=== PATIENT | female | born 1935 | race Caucasian/White ===

== ENCOUNTER 2016-10-08 06:16 | Day surgery (SDC) | payer MEDICARE, OTHER ==
[2016-10-06 11:37] VITALS: BMI 39.4
[~2016-10-08 06:16] MED LIST: LACTATED RINGERS 1,000 ML IV SCH; LIDOCAINE 1% 20 ML VIAL (10MG/ML) FOR IV START INTRADERMA PRN
[2016-10-08] MEDS ORDERED: LACTATED RINGERS 1,000 ML IV ONE (07:16)
[2016-10-08 07:30] LABS: Glucose,Whole Blood 97 mg/dL (75-99)
[2016-10-08] MEDS ORDERED: PROPOFOL 10 MG/ML 20 ML VIAL IV ONE (07:40)
--- NOTE | 2016-10-08 07:49 | P.GSHP ---
History of Present Illness H&P Date: 10/08/16 Patient is here today for colonoscopy. At the [facility] she was found have a large mass in the perianal location. She has constant leakage and is not sure if it is urine or liquid stool. She herself is unaware of the mass being there. Some bleeding at times. Past Medical History Past Medical History: Diabetes Mellitus, GERD/Reflux, Hyperlipidemia, Hypertension, Renal Disease, Thyroid Disorder, Vascular Disorder Additional Past Medical History / Comment(s): Type 2 diabetic, chronic renal failure, esophageal stricture, uses 4 wheel walker History of Any Multi-Drug Resistant Organisms: None Reported Past Surgical History: Hysterectomy Additional Past Surgical History / Comment(s): rectocele repair Past Anesthesia/Blood Transfusion Reactions: No Reported Reaction Smoking Status: Never smoker Past Alcohol Use History: None Reported Past Drug Use History: None Reported - Past Family History Mother Family Medical History: Unable to Obtain Medications and Allergies Home Medications Medication Instructions Recorded Confirmed Type Lovastatin [Mevacor] 20 mg PO HS 10/09/13 10/06/16 History Allopurinol [Zyloprim] 100 mg PO DAILY 09/22/16 10/06/16 History Doxercalciferol 0.5 mcg PO MO 09/22/16 10/06/16 History Famotidine [Pepcid] 20 mg PO DAILY 09/22/16 10/06/16 History Furosemide [Lasix] 20 mg PO DAILY 09/22/16 10/06/16 History Levothyroxine Sodium [Synthroid] 88 mcg PO DAILY 09/22/16 10/06/16 History Linagliptin [Tradjenta] 5 mg PO DAILY 09/22/16 10/06/16 History Mirabegron [Myrbetriq] 25 mg PO DAILY 09/22/16 10/06/16 History Ubidecarenone [Co Q-10] 200 mg PO DAILY 09/22/16 10/06/16 History Vit D3/Folic Acid/B2/B6/B12 1 each PO HS 09/22/16 10/06/16 History [Folgard Tablet] amLODIPine BESYLATE [Norvasc] 2.5 mg PO DAILY 09/22/16 10/08/16 History Acetaminophen [Tylenol] 2 tab PO Q4H PRN 10/06/16 10/06/16 History Arthricream Rub Cream 10% 1 applic TOPICAL DAILY PRN 10/06/16 10/06/16 History Bisacodyl [Dulcolax] 10 mg RECTAL DAILY PRN 10/06/16 10/06/16 History Calcium Carbonate [Tums] 500 mg PO BID 10/06/16 10/06/16 History Ferrous Sulfate [Feosol] 325 mg PO DAILY 10/06/16 10/06/16 History Hydrocortisone Pr Cream 1 applic RECTAL QID PRN 10/06/16 10/06/16 History [Proctosol-Hc 2.5%] Magnesium Hydroxide [Milk of 30 ml PO Q48H PRN 10/06/16 10/06/16 History Magnesia Concentrate] Nystatin 100,000Unit/gm Cream 1 applic TOPICAL TID PRN 10/06/16 10/06/16 History [Mycostatin Cream] Allergies Allergy/AdvReac Type Severity Reaction Status Date / Time No Known Allergies Allergy Verified 10/08/16 07:23 Surgical - Exam Vital Signs Temp Pulse Resp BP Pulse Ox 97.5 F L 70 18 137/89 97 10/08/16 07:21 10/08/16 07:21 10/08/16 07:21 10/08/16 07:21 10/08/16 07:21 Physical exam: General: Well-developed, well-nourished HEENT: Normocephalic, sclerae nonicteric Abdomen: Nontender, nondistended Extremities: No edema Neuro: Alert and oriented Rectal: 2.5 cm soft fleshy mass in the left lateral location Assessment and Plan (1) Mass of perirectal soft tissue Narrative/Plan: Will proceed with colonoscopy at this time. Risks of bleeding and infection were discussed. She understands and wishes to proceed. Status: Acute
[2016-10-08] MEDS ORDERED: BUPIVACAIN-EPI 0.25%-1:200,000 30 ML VIAL SQ ONE (08:03)
[2016-10-08] MEDS ORDERED: NALOXONE 0.4 MG/ML 1 ML VIAL IV PRN (09:22)
[2016-10-08] MEDS ORDERED: HYDROcodone/APAP 5-325MG 1 EACH TAB PO PRN (09:22)
[2016-10-08] MEDS ORDERED: ONDANSETRON 4 MG/2 ML VIAL IVP PRN (09:22)
--- NOTE | 2016-10-08 09:27 | P.PCN ---
Date of Procedure: 10/08/16 Procedure(s) Performed: PREOPERATIVE DIAGNOSIS: Perianal mass with rectal bleeding POSTOPERATIVE DIAGNOSIS: Ascending colon polyp, rectal polyp, diverticulosis, large distal anal rectal polyp PROCEDURE: Colonoscopy with snare polypectomy ANESTHESIA: MAC SURGEON: Eliot Balbuena M.D. SPECIMENS: [] ENDOSCOPIC PROCEDURE: The patient was placed on the endoscopy table in the left decubitus position. The Olympus colonoscope was inserted into the anus and passed under direct visualization to the base of the cecum. The appendiceal orifice was visualized. From that point the scope was slowly withdrawn inspecting all surfaces carefully. There were no neoplastic inflammatory or polypoid lesions throughout the cecum. In the ascending colon a small polyp was identified and removed using the snare with cautery technique. The remainder of the ascending transverse descending and sigmoid colon appeared normal. In the rectum there is noted be a small polyp and was removed in a similar fashion. There was mild diverticulosis present. The patient had a large perianal mass present. Upon closer inspection this appears to be a large polyp emanating from the rectal mucosa immediately proximal to the dentate line. This was pedunculated. The stalk itself was about 1 cm in diameter. I decided to remove this using the snare with cautery technique. Local anesthesia was utilized and this consisted of quarter percent Marcaine solution with epinephrine. 8 mL was utilized. The polypoid lesion was removed without difficulty. A small amount of bleeding was identified pressure was held and no further bleeding was seen at that time. The patient was taken to the recovery room in stable condition per anesthesia guidelines. RECOMMENDATIONS: Await biopsy results. Will plan observation today to monitor for any evidence of bleeding. Patient will require short-term follow-up colonoscopy.
[2016-10-08 11:58] LABS: Glucose,Whole Blood 101 mg/dL (75-99)
[2016-10-08 14:56] VITALS: BP 137/61; PULSE 80; RESP 16; TEMP 98.3
[2016-10-08] MEDS: INSULIN LISPRO (humaLOG) 300 UNIT/3 ML VIAL SQ SCH ×2 (15:24→18:01)
[2016-10-08] MEDS ORDERED: NYSTATIN 100,000UNIT/GM CREAM 30 GM TUBE TOPICAL PRN (15:32)
[2016-10-08] MEDS ORDERED: HEPARIN SODIUM,PORCINE 5,000 UNIT/ML 1 ML VIAL SQ SCH (16:00)
[2016-10-08] MEDS ORDERED: ATORVASTATIN 10 MG TAB PO SCH (21:00)
[2016-10-09] MEDS ORDERED: LEVOTHYROXINE 88 MCG TAB PO SCH (06:30)
[2016-10-09] MEDS ORDERED: FERROUS SULFATE 325 MG TAB PO SCH (09:00)
[2016-10-09] MEDS ORDERED: FUROSEMIDE 20 MG TAB PO SCH (09:00)
[2016-10-09] MEDS ORDERED: LINAGLIPTIN 5 MG TABLET PO SCH (09:00)
[2016-10-09] MEDS ORDERED: ALLOPURINOL 100 MG TAB PO SCH (09:00)
[2016-10-09] MEDS ORDERED: FAMOTIDINE 20 MG TAB PO SCH (09:00)
== END 2016-10-08 18:56 ==
LOC: ORWHC2ENDO 06:16 → 3SUR 08:10 → ORWHC2ENDO 18:56
PROVIDERS: ATTEND Surgery
DX: D12.8 Benign neoplasm of rectum (principal); D12.9 Benign neoplasm of anus and anal canal; K63.5 Polyp of colon; K57.90 Diverticulosis of intestine, part unspecified, without perforation or abscess without bleeding; K21.9 Gastro-esophageal reflux disease without esophagitis; E07.9 Disorder of thyroid, unspecified; E78.5 Hyperlipidemia, unspecified; I12.9 Hypertensive chronic kidney disease with stage 1 through stage 4 chronic kidney disease, or unspecified chronic kidney disease; E11.22 Type 2 diabetes mellitus with diabetic chronic kidney disease; N18.9 Chronic kidney disease, unspecified; Z79.84 Long term (current) use of oral hypoglycemic drugs
CPT/HCPCS: 88305; 45385; J2704